=== PATIENT | female | born 1955 | race Caucasian/White ===

== ENCOUNTER → 2017-03-03 | Outpatient (CLI) | payer MEDICARE ==
[~2017-03-03] MED LIST: ASPI325T4 PO; ATOR10TA9 PO; ATOR40TA PO; BUPR75TA6 PO; CLOP75TA22 PO; FURO-93 PO; LISI-167 PO; METH750T87 PO; METO-93 PO; METO25TA91 PO; NITR0.4T8 SL; POTA10TA11 PO; TRAM50TA2 PO
== END | disposition home or self-care (01) ==
LOC: CFH 10:40
PROVIDERS: ATTEND Internal Medicine Cardiovascular Disease
DX: Z01.419 Encounter for gynecological examination (general) (routine) without abnormal findings (principal); E78.00 Pure hypercholesterolemia, unspecified; I10 Essential (primary) hypertension; I25.10 Atherosclerotic heart disease of native coronary artery without angina pectoris; I89.0 Lymphedema, not elsewhere classified; R19.7 Diarrhea, unspecified
CPT/HCPCS: 36415; 80061

== ENCOUNTER → 2018-01-16 | Outpatient (CLI) | payer MEDICARE ==
[~2018-01-16] MED LIST changes: +ASPI325T17 PO; -ASPI325T4 PO; -CLOP75TA22 PO; +CLOP75TA52 PO; +NITR0.4T28 SL; -NITR0.4T8 SL
[2018-01-16 13:01] LABS: ALBUMIN 4.2 g/dL (3.4-5.0); ANION GAP 4 mmol/L (5-15); CALCIUM 9.2 mg/dL (8.5-10.1); CHLORIDE 107 mmol/L (98-107)
[2018-01-16 13:04] LABS: ALANINE AMINOTRANSFERASE 75 U/L (12-78); ALKALINE PHOSPHATASE 99 U/L (45-117); BILIRUBIN,TOTAL 0.7 mg/dL (0.2-1.0); CHOL/HDL RATIO 6.8; CHOLESTEROL, TOTAL 238 mg/dL (140-239); CREATININE 0.84 mg/dL (0.55-1.02); HDL CHOL % 15 % (28-40); HDL CHOLESTEROL (DIRECT) 35 mg/dL (40-60); LDL CHOLESTEROL,CALCULATED 140 mg/dL (54-169); TOTAL PROTEIN 7.7 g/dL (6.4-8.2); TRIGLYCERIDES 314 mg/dL (50-200); VLDL CHOLESTEROL 63 mg/dL (0-25)
== END | disposition home or self-care (01) ==
LOC: CFH 10:25
PROVIDERS: ATTEND Internal Medicine Cardiovascular Disease
DX: I10 Essential (primary) hypertension (principal); E78.00 Pure hypercholesterolemia, unspecified
CPT/HCPCS: 36415; 80053; 80061

== ENCOUNTER → 2018-02-09 | Outpatient (CLI) | payer MEDICARE ==
[2018-02-09 12:39] LABS: CHLORIDE 107 mmol/L (98-107)
[2018-02-09 12:48] LABS: ANION GAP 7 mmol/L (5-15); CALCIUM 8.7 mg/dL (8.5-10.1); CREATININE 0.89 mg/dL (0.55-1.02)
== END ==
LOC: CFH 09:54
PROVIDERS: ATTEND Anesthesiology
DX: Z01.818 Encounter for other preprocedural examination (principal)
CPT/HCPCS: 36415; 80048

== ENCOUNTER → 2018-06-29 | Outpatient (CLI) | payer MEDICARE ==
[2018-06-29 12:46] LABS: CHLORIDE 106 mmol/L (98-107)
[2018-06-29 13:13] LABS: ALANINE AMINOTRANSFERASE 69 U/L (12-78); ALBUMIN 4.1 g/dL (3.4-5.0); ALKALINE PHOSPHATASE 105 U/L (45-117); ANION GAP 7 mmol/L (5-15); BILIRUBIN,TOTAL 0.7 mg/dL (0.2-1.0); CALCIUM 8.7 mg/dL (8.5-10.1); CHOL/HDL RATIO 6.8; CHOLESTEROL, TOTAL 219 mg/dL (140-239); CREATININE 0.83 mg/dL (0.55-1.02); HDL CHOL % 15 % (28-40); HDL CHOLESTEROL (DIRECT) 32 mg/dL (40-60); T4 (THYROXINE) 8.5 mcg/dL (4.8-13.9); TOTAL PROTEIN 7.6 g/dL (6.4-8.2); TRIGLYCERIDES 401 mg/dL (50-200)
== END | disposition home or self-care (01) ==
LOC: CFH 10:43
PROVIDERS: ATTEND Nurse Practitioner Family
DX: I10 Essential (primary) hypertension (principal); E78.00 Pure hypercholesterolemia, unspecified; R00.2 Palpitations
CPT/HCPCS: 36415; 80053; 80061; 84436; 84443; 84481

== ENCOUNTER → 2018-08-19 | Outpatient (CLI) | payer MEDICARE ==
[2018-08-19 12:53] LABS: TROPONIN I < 0.015 ng/mL (0.000-0.045)
== END | disposition home or self-care (01) ==
LOC: CFH 11:27
PROVIDERS: ATTEND Internal Medicine Cardiovascular Disease
DX: I25.10 Atherosclerotic heart disease of native coronary artery without angina pectoris (principal)
CPT/HCPCS: 36415; 84484

== ENCOUNTER 2018-09-10 12:07 | Observation (INO) | payer MEDICARE ==
[~2018-09-10] VITALS: Ht 162.6 cm; Wt 93.4 kg
[2018-09-10 13:42] LABS: BASOPHILS # (AUTO) 0.05 x10^3/uL (0-0.1); BASOPHILS % (AUTO) 1 % (0-1); EOSINOPHILS # (AUTO) 0.38 x10^3/uL (0-0.4); EOSINOPHILS % (AUTO) 4 % (1-7); LYMPHOCYTES # (AUTO) 2.83 x10^3/uL (1-3.4); LYMPHOCYTES % (AUTO) 31 % (22-44); MD NO; MEAN CORPUSCULAR HEMOGLOBIN 29.8 pg (27.0-34.8); MEAN CORPUSCULAR HGB CONC 33.9 g/dL (32.4-35.8); MEAN CORPUSCULAR VOLUME 87.9 fL (80-100); MEAN PLATELET VOLUME 7.3 fL (7.4-10.4); MONOCYTES # (AUTO) 0.56 x10^3/uL (0.2-0.8); MONOCYTES % (AUTO) 6 % (2-9); NEUTROPHILS # (AUTO) 5.24 x10^3/uL (1.8-6.8); NEUTROPHILS % (AUTO) 58 % (42-75); PLATELET COUNT 379 x10^3/uL (130-400); RED BLOOD COUNT 5.34 x10^6/uL (3.82-5.3); RED CELL DISTRIBUTION WIDTH 13.1 % (9.6-15.2)
[2018-09-10 13:55] LABS: ALANINE AMINOTRANSFERASE 65 U/L (12-78); ALBUMIN 4.5 g/dL (3.4-5.0); ANION GAP 7 mmol/L (5-15); CHLORIDE 108 mmol/L (98-107); CREATININE 0.87 mg/dL (0.55-1.02)
[2018-09-10 13:57] LABS: ALKALINE PHOSPHATASE 107 U/L (45-117); BILIRUBIN,TOTAL 0.5 mg/dL (0.2-1.0)
[2018-09-10 14:37] LABS: CULTURE INDICATED? YES; MICROSCOPIC INDICATED
[2018-09-10] MEDS ORDERED: ONDANSETRON 2MG/ML, 2ML ONE (14:40)
[2018-09-10] MEDS ORDERED: MORPHINE SULFATE 4 MG/ML, 1ML ONE ×2 (14:41→15:59)
[2018-09-10] MEDS: MORPHINE SULFATE 4 MG/ML, 1ML IVPush PRN ×2 (14:56→16:04)
[2018-09-10] MEDS ORDERED: SODIUM CHLORIDE FLUSH 10ML SYR IVF ONE (15:00)
[2018-09-10] MEDS ORDERED: ONDANSETRON 2MG/ML, 2ML IVPush ONE (15:00)
[2018-09-10 15:03] LABS: TROPONIN I < 0.015 ng/mL (0.000-0.045)
[2018-09-10] MEDS ORDERED: CYCL5TAB PO (15:05)
[2018-09-10] MEDS ORDERED: OMNIPAQUE 350 MG/ML, 100ML BOTTLE ONE ×2 (15:55→18:04)
[2018-09-10] MEDS ORDERED: DOCUSATE 100 MG CAPSULE PO PRN (17:00)
[2018-09-10] MEDS ORDERED: ENALAPRILAT 1.25 MG/ML, 2ML IVPush PRN (17:00)
[2018-09-10] MEDS ORDERED: ONDANSETRON 2MG/ML, 2ML IVPush PRN (17:00)
[2018-09-10] MEDS ORDERED: ONDANSETRON ODT 4 MG PO PRN (17:00)
[2018-09-10] MEDS ORDERED: NITROGLYCERIN 0.4 MG BOTTLE (25 TABS) SL PRN ×2 (17:00)
[2018-09-10] MEDS ORDERED: GABAPENTIN 300 MG CAPSULE PO PRN (17:00)
[2018-09-10] MEDS ORDERED: NITROGLYCERIN 0.4 MG/SPRAY SL PRN (17:00)
[2018-09-10] MEDS ORDERED: MAALOX/HYOSCYAMINE/LIDOCAINE 45 ML BTL PO PRN (17:00)
[2018-09-10] MEDS ORDERED: MORPHINE SULFATE 4 MG/ML, 1ML IVPush PRN (17:00)
[2018-09-10 17:23] LABS: THYROID STIMULATING HORMONE 1.7 mIU/L (0.358-3.740)
[2018-09-10 18:27] VITALS: BP 161/93
[2018-09-10 19:55] LABS: TROPONIN I < 0.015 ng/mL (0.000-0.045)
[2018-09-10 19:58] VITALS: BP 150/87
[2018-09-10] MEDS: METHOCARBAMOL 500 MG TABLET PO SCH (20:52)
[2018-09-10] MEDS: ENOXAPARIN 40 MG/0.4 ML SQ SCH (20:52)
[2018-09-10] MEDS: ACETAMINOPHEN 325 MG TABLET PO PRN (20:52)
[2018-09-10] MEDS: FAMOTIDINE 20 MG TABLET PO SCH (20:52)
[2018-09-11 01:40] VITALS: BP 93/53
[2018-09-11 01:44] LABS: TROPONIN I < 0.015 ng/mL (0.000-0.045)
[2018-09-11] MEDS: METHOCARBAMOL 500 MG TABLET PO SCH ×3 (05:00→17:18)
[2018-09-11 05:46] LABS: BASOPHILS # (AUTO) 0.07 x10^3/uL (0-0.1); BASOPHILS % (AUTO) 1 % (0-1); EOSINOPHILS # (AUTO) 0.39 x10^3/uL (0-0.4); EOSINOPHILS % (AUTO) 5 % (1-7); LYMPHOCYTES # (AUTO) 2.72 x10^3/uL (1-3.4); LYMPHOCYTES % (AUTO) 38 % (22-44); MD NO; MEAN CORPUSCULAR HEMOGLOBIN 30.9 pg (27.0-34.8); MEAN CORPUSCULAR HGB CONC 35.1 g/dL (32.4-35.8); MEAN PLATELET VOLUME 7.4 fL (7.4-10.4); MONOCYTES # (AUTO) 0.56 x10^3/uL (0.2-0.8); MONOCYTES % (AUTO) 8 % (2-9); NEUTROPHILS # (AUTO) 3.38 x10^3/uL (1.8-6.8); NEUTROPHILS % (AUTO) 48 % (42-75); PLATELET COUNT 332 x10^3/uL (130-400); RED BLOOD COUNT 4.69 x10^6/uL (3.82-5.3); RED CELL DISTRIBUTION WIDTH 13.1 % (9.6-15.2)
[2018-09-11 05:55] LABS: CALCIUM 9.2 mg/dL (8.5-10.1); CHLORIDE 104 mmol/L (98-107)
[2018-09-11 06:01] LABS: ALANINE AMINOTRANSFERASE 56 U/L (12-78); ALBUMIN 3.9 g/dL (3.4-5.0); ALKALINE PHOSPHATASE 95 U/L (45-117); ANION GAP 9 mmol/L (5-15); BILIRUBIN,TOTAL 0.9 mg/dL (0.2-1.0); CHOL/HDL RATIO 6.9; CHOLESTEROL, TOTAL 214 mg/dL (140-239); CREATININE 1.02 mg/dL (0.55-1.02); HDL CHOL % 14 % (28-40); HDL CHOLESTEROL (DIRECT) 31 mg/dL (40-60); LDL CHOLESTEROL,CALCULATED 111 mg/dL (54-169); LDL/HDL RATIO 3.6 (0.5-3.0); TRIGLYCERIDES 362 mg/dL (50-200); VLDL CHOLESTEROL 72 mg/dL (0-25)
[2018-09-11 07:16] VITALS: BP 118/72
[2018-09-11] MEDS: ASPIRIN 325 MG TABLET PO SCH (09:03)
[2018-09-11] MEDS: FAMOTIDINE 20 MG TABLET PO SCH ×2 (09:03→21:18)
[2018-09-11] MEDS: LISINOPRIL 10 MG TABLET PO SCH (09:03)
[2018-09-11] MEDS: METOPROLOL SUCCINATE 50 MG TAB.ER.24H PO SCH (09:04)
[2018-09-11] MEDS ORDERED: LIDODERM 5% PATCH TD PRN (10:00)
[2018-09-11] MEDS ORDERED: SODIUM CHLORIDE 0.9% 1,000 ML IV ONE (10:24)
[2018-09-11 11:37] VITALS: BP 131/76
[2018-09-11] MEDS ORDERED: FENTANYL PF 100 MCG/2ML ONE (13:57)
[2018-09-11] MEDS ORDERED: MIDAZOLAM 1 MG/ML, 5ML ONE (13:57)
[2018-09-11] MEDS ORDERED: HEPARIN 1,000 UNITS/ML, 10ML ONE (13:58)
[2018-09-11] MEDS ORDERED: VERAPAMIL 2.5 MG/ML, 2ML ONE (13:58)
[2018-09-11] MEDS ORDERED: LIDOCAINE 2%, 20ML ONE (13:58)
[2018-09-11] MEDS ORDERED: TICAGRELOR 90 MG TABLET ONE (13:58)
[2018-09-11] MEDS ORDERED: BIVALIRUDIN 250 MG ONE ×2 (13:58→15:16)
[2018-09-11] MEDS ORDERED: SODIUM CHLORIDE 0.9% 1,000 ML IV SCH (15:20)
[2018-09-11] MEDS: BIVALIRUDIN 250 MG in DEXTROSE 5% 100 ML IV SCH ×2 (15:32→17:54)
[2018-09-11 15:42] VITALS: BP 147/84
[2018-09-11] MEDS: ACETAMINOPHEN 325 MG TABLET PO PRN (18:25)
[2018-09-11 20:44] VITALS: BP 161/82
[2018-09-11] MEDS: ENOXAPARIN 40 MG/0.4 ML SQ SCH (21:18)
[2018-09-11] MEDS: TICAGRELOR 90 MG TABLET PO SCH (21:18)
[2018-09-12 01:25] VITALS: BP 138/79
[2018-09-12] MEDS: ACETAMINOPHEN 325 MG TABLET PO PRN ×2 (02:21→09:17)
[2018-09-12 04:52] LABS: ANION GAP 6 mmol/L (5-15); CALCIUM 8.8 mg/dL (8.5-10.1); CHLORIDE 105 mmol/L (98-107); CREATININE 0.94 mg/dL (0.55-1.02)
[2018-09-12] MEDS: METHOCARBAMOL 500 MG TABLET PO SCH (05:56)
[2018-09-12 07:55] VITALS: BP 165/95
[2018-09-12] MEDS: ASPIRIN 325 MG TABLET PO SCH (08:52)
[2018-09-12] MEDS: TICAGRELOR 90 MG TABLET PO SCH (08:55)
[2018-09-12] MEDS: FAMOTIDINE 20 MG TABLET PO SCH (08:55)
[2018-09-12] MEDS: LISINOPRIL 10 MG TABLET PO SCH (08:55)
[2018-09-12] MEDS: METOPROLOL SUCCINATE 50 MG TAB.ER.24H PO SCH (08:56)
[2018-09-12] MEDS ORDERED: ASPIRIN 81 MG TABLET EC PO SCH (09:00)
[2018-09-12 10:09] VITALS: BP 160/77
[2018-09-12] MEDS ORDERED: ASPI325T17 PO (10:11)
[2018-09-12] MEDS ORDERED: TICA90TA PO (10:11)
== END 2018-09-12 12:07 | disposition home or self-care (01) ==
LOC: ED 13:43 → EDIP 16:55 → 5SO 18:16
PROVIDERS: ADMIT Hospitalist; ATTEND Hospitalist
DX: I25.110 Atherosclerotic heart disease of native coronary artery with unstable angina pectoris (principal); E66.9 Obesity, unspecified; E78.1 Pure hyperglyceridemia; E78.5 Hyperlipidemia, unspecified; I10 Essential (primary) hypertension; F32.9 Major depressive disorder, single episode, unspecified; K76.0 Fatty (change of) liver, not elsewhere classified; Z79.82 Long term (current) use of aspirin; Z82.0 Family history of epilepsy and other diseases of the nervous system; Z82.3 Family history of stroke; Z82.49 Family history of ischemic heart disease and other diseases of the circulatory system; Z86.19 Personal history of other infectious and parasitic diseases; Z87.891 Personal history of nicotine dependence; Z90.710 Acquired absence of both cervix and uterus
CPT/HCPCS: 36415; 71275; 74177; 76700; 80048; 80053; 80061; 81001; 82607; 83690; 83735; 84443; 84484; 85025; 87086; 93005; 93458; 96365; 96366; 96372; 96375; 96376; 99156; 99157; 99284; C1725; C1760; C1769; C1874; C1887; C1894; C9604; G0378; J0583; J1644; J1650; J2250; J2405; J3010; J7030; Q9967; J3490

== ENCOUNTER → 2018-10-21 | Outpatient (CLI) | payer MEDICARE ==
[~2018-10-21] MED LIST changes: +CYCL5TAB PO; +TICA90TA PO
[2018-10-22 13:34] LABS: CRYPTOSPORIDIUM ANTIGEN Negative (Negative)
== END | disposition home or self-care (01) ==
LOC: CFH 12:15
PROVIDERS: ATTEND Internal Medicine Gastroenterology
DX: K21.9 Gastro-esophageal reflux disease without esophagitis (principal); E73.9 Lactose intolerance, unspecified; I10 Essential (primary) hypertension; E89.41 Symptomatic postprocedural ovarian failure; K63.89 Other specified diseases of intestine; R10.11 Right upper quadrant pain; G58.8 Other specified mononeuropathies; F45.8 Other somatoform disorders; Z95.5 Presence of coronary angioplasty implant and graft; R19.4 Change in bowel habit; Z79.01 Long term (current) use of anticoagulants; Z68.34 Body mass index [BMI] 34.0-34.9, adult; Z86.010 Personal history of colon polyps; Z87.891 Personal history of nicotine dependence
CPT/HCPCS: 36415; 82150; 82784; 83516; 86803; 87015; 87177; 87206; 87209; 87328; 87329

== ENCOUNTER → 2018-12-22 | Outpatient (CLI) | payer MEDICARE ==
[2018-12-22 16:54] LABS: CHLORIDE 108 mmol/L (98-107)
[2018-12-22 17:01] LABS: ALANINE AMINOTRANSFERASE 62 U/L (12-78); ALBUMIN 4.3 g/dL (3.4-5.0); ALKALINE PHOSPHATASE 108 U/L (45-117); ANION GAP 6 mmol/L (5-15); BILIRUBIN,TOTAL 0.9 mg/dL (0.2-1.0); CALCIUM 9.1 mg/dL (8.5-10.1); CHOL/HDL RATIO 6.5; CHOLESTEROL, TOTAL 234 mg/dL (140-239); HDL CHOL % 15 % (28-40); HDL CHOLESTEROL (DIRECT) 36 mg/dL (40-60); LDL CHOLESTEROL,CALCULATED 131 mg/dL (54-169); LDL/HDL RATIO 3.6 (0.5-3.0); TOTAL PROTEIN 7.5 g/dL (6.4-8.2); TRIGLYCERIDES 334 mg/dL (50-200); VLDL CHOLESTEROL 67 mg/dL (0-25)
== END | disposition home or self-care (01) ==
LOC: CFH 11:00
PROVIDERS: ATTEND Internal Medicine Cardiovascular Disease
DX: Z01.810 Encounter for preprocedural cardiovascular examination (principal); R00.2 Palpitations; R19.7 Diarrhea, unspecified; I10 Essential (primary) hypertension; I25.10 Atherosclerotic heart disease of native coronary artery without angina pectoris; E78.00 Pure hypercholesterolemia, unspecified
CPT/HCPCS: 36415; 80053; 80061

== ENCOUNTER 2019-05-14 10:54 | Outpatient (CLI) | payer MEDICARE | END 2019-05-14 23:59 | disposition home or self-care (01) | LOC: CFH 10:54 | PROVIDERS: ATTEND Internal Medicine Cardiovascular Disease | DX: Z01.810 Encounter for preprocedural cardiovascular examination (principal); E78.00 Pure hypercholesterolemia, unspecified; I10 Essential (primary) hypertension; I25.10 Atherosclerotic heart disease of native coronary artery without angina pectoris; R00.2 Palpitations; R19.7 Diarrhea, unspecified | CPT/HCPCS: 36415; 80053; 80061; 84436; 84443; 84481; 85025 ==

== ENCOUNTER → 2019-12-07 | Outpatient (CLI) | payer MEDICARE ==
[~2019-12-07] MED LIST changes: +ASPI-515 PO; +CLOPIDOGREL PO
[2019-12-07 13:10] LABS: BASOPHILS # (AUTO) 0.03 x10^3/uL (0-0.1); BASOPHILS % (AUTO) 1 % (0-1); EOSINOPHILS # (AUTO) 0.21 x10^3/uL (0-0.4); EOSINOPHILS % (AUTO) 3 % (1-7); LYMPHOCYTES # (AUTO) 2.35 x10^3/uL (1-3.4); LYMPHOCYTES % (AUTO) 35 % (22-44); MD NO; MEAN CORPUSCULAR HEMOGLOBIN 30.2 pg (27.0-34.8); MEAN CORPUSCULAR HGB CONC 33.7 g/dL (32.4-35.8); MEAN CORPUSCULAR VOLUME 89.7 fL (80-100); MEAN PLATELET VOLUME 7.4 fL (7.4-10.4); MONOCYTES # (AUTO) 0.42 x10^3/uL (0.2-0.8); MONOCYTES % (AUTO) 6 % (2-9); NEUTROPHILS # (AUTO) 3.72 x10^3/uL (1.8-6.8); NEUTROPHILS % (AUTO) 55 % (42-75); PLATELET COUNT 345 x10^3/uL (130-400); RED BLOOD COUNT 5.13 x10^6/uL (3.82-5.3); RED CELL DISTRIBUTION WIDTH 13.2 % (9.6-15.2)
[2019-12-07 13:53] LABS: ALBUMIN 4.4 g/dL (3.4-5.0); ANION GAP 6 mmol/L (5-15); CALCIUM 9.2 mg/dL (8.5-10.1); CHLORIDE 105 mmol/L (98-107)
[2019-12-07 13:57] LABS: ALANINE AMINOTRANSFERASE 55 U/L (12-78); ALKALINE PHOSPHATASE 104 U/L (45-117); BILIRUBIN,TOTAL 0.8 mg/dL (0.2-1.0); CHOL/HDL RATIO 7.3; CHOLESTEROL, TOTAL 232 mg/dL (140-239); CREATININE 0.92 mg/dL (0.55-1.02); HDL CHOL % 14 % (28-40); HDL CHOLESTEROL (DIRECT) 32 mg/dL (40-60); LDL CHOLESTEROL,CALCULATED 133 mg/dL (54-169); LDL/HDL RATIO 4.2 (0.5-3.0); TRIGLYCERIDES 337 mg/dL (50-200); VLDL CHOLESTEROL 67 mg/dL (0-25)
== END | disposition home or self-care (01) ==
LOC: CFH 11:06
PROVIDERS: ATTEND Internal Medicine Cardiovascular Disease
DX: I25.10 Atherosclerotic heart disease of native coronary artery without angina pectoris (principal); I10 Essential (primary) hypertension; E78.00 Pure hypercholesterolemia, unspecified; R00.2 Palpitations; R06.00 Dyspnea, unspecified
CPT/HCPCS: 36415; 80053; 80061; 85025

== ENCOUNTER 2020-04-07 08:27 | Day surgery (SDC) | payer MEDICARE ==
[~2020-04-07] VITALS: Ht 162.6 cm; Wt 90.9 kg
[2020-04-07] MEDS ORDERED: SODIUM CHLORIDE 0.9% 1,000 ML IV SCH (08:42)
[2020-04-07 08:46] VITALS: BP 155/94
[2020-04-07] MEDS ORDERED: CLOP75TA52 PO (09:03)
[2020-04-07] MEDS ORDERED: ASPI81TA45 PO (09:03)
[2020-04-07] MEDS ORDERED: OMEG1CAP23 PO (09:12)
[2020-04-07] MEDS ORDERED: NITR0.4T28 SL (09:12)
[2020-04-07] MEDS ORDERED: POTA10TA31 PO (09:12)
[2020-04-07] MEDS ORDERED: CHOL10003 PO (09:12)
[2020-04-07] MEDS ORDERED: MULT-658 PO (09:12)
[2020-04-07] MEDS ORDERED: METO50TA82 PO (09:12)
[2020-04-07] MEDS ORDERED: UBID100C24 PO (09:12)
[2020-04-07] MEDS ORDERED: KRIL1CAP31 PO (09:12)
[2020-04-07] MEDS ORDERED: PLAN450T PO (09:12)
[2020-04-07] MEDS ORDERED: LACT1CAP35 PO (09:12)
[2020-04-07] MEDS ORDERED: CYCL5TAB PO (09:12)
[2020-04-07] MEDS ORDERED: RED YEAST PO (09:12)
[2020-04-07] MEDS ORDERED: FURO-93 PO (09:12)
[2020-04-07] MEDS ORDERED: CA C1TAB62 PO (09:12)
[2020-04-07 09:23] LABS: BASOPHILS # (AUTO) 0.04 x10^3/uL (0-0.1); BASOPHILS % (AUTO) 1 % (0-1); EOSINOPHILS # (AUTO) 0.28 x10^3/uL (0-0.4); EOSINOPHILS % (AUTO) 4 % (1-7); LYMPHOCYTES # (AUTO) 2.41 x10^3/uL (1-3.4); LYMPHOCYTES % (AUTO) 37 % (22-44); MD NO; MEAN CORPUSCULAR HEMOGLOBIN 29.5 pg (27.0-34.8); MEAN CORPUSCULAR HGB CONC 32.8 g/dL (32.4-35.8); MEAN PLATELET VOLUME 7.1 fL (7.4-10.4); MONOCYTES # (AUTO) 0.47 x10^3/uL (0.2-0.8); MONOCYTES % (AUTO) 7 % (2-9); NEUTROPHILS # (AUTO) 3.28 x10^3/uL (1.8-6.8); NEUTROPHILS % (AUTO) 51 % (42-75); PLATELET COUNT 332 x10^3/uL (130-400); RED BLOOD COUNT 4.95 x10^6/uL (3.82-5.3); RED CELL DISTRIBUTION WIDTH 13.7 % (9.6-15.2)
[2020-04-07 09:35] LABS: ANION GAP 4 mmol/L (5-15); CALCIUM 9.3 mg/dL (8.5-10.1); CHLORIDE 110 mmol/L (98-107)
[2020-04-07 09:36] LABS: CREATININE 0.91 mg/dL (0.55-1.02)
[2020-04-07] MEDS ORDERED: VERAPAMIL 2.5 MG/ML, 2ML ONE (10:08)
[2020-04-07] MEDS ORDERED: MIDAZOLAM 1 MG/ML, 5ML ONE (10:08)
[2020-04-07] MEDS ORDERED: FENTANYL PF 100 MCG/2ML ONE (10:08)
[2020-04-07] MEDS ORDERED: TICAGRELOR 90 MG TABLET ONE (10:08)
[2020-04-07] MEDS ORDERED: LIDOCAINE-MPF 1%, 5ML ONE (10:08)
[2020-04-07] MEDS ORDERED: BIVALIRUDIN 250 MG ONE (10:08)
[2020-04-07] MEDS ORDERED: HEPARIN 1,000 UNITS/ML, 10ML ONE (10:09)
[2020-04-07] MEDS ORDERED: DIPHENHYDRAMINE 50 MG/ML, 1ML ONE (11:02)
== END 2020-04-07 15:03 | disposition home or self-care (01) ==
LOC: CACL 08:27
PROVIDERS: ATTEND Internal Medicine Cardiovascular Disease
DX: I25.110 Atherosclerotic heart disease of native coronary artery with unstable angina pectoris (principal); I25.700 Atherosclerosis of coronary artery bypass graft(s), unspecified, with unstable angina pectoris; I25.83 Coronary atherosclerosis due to lipid rich plaque; I25.82 Chronic total occlusion of coronary artery; I10 Essential (primary) hypertension; I25.2 Old myocardial infarction; E78.00 Pure hypercholesterolemia, unspecified; Z79.82 Long term (current) use of aspirin; Z79.02 Long term (current) use of antithrombotics/antiplatelets; Z79.899 Other long term (current) drug therapy; Z87.891 Personal history of nicotine dependence; Z88.2 Allergy status to sulfonamides; Z91.030 Bee allergy status; Z91.040 Latex allergy status; Z95.5 Presence of coronary angioplasty implant and graft
CPT/HCPCS: 36415; 80048; 85025; 93459; 99156; 99157; C1760; C1769; C1894; J1200; J2250; J3010; Q9967; J0583; J1644

== ENCOUNTER 2020-08-28 15:12 | Emergency (ER) | payer MEDICARE ==
[~2020-08-28] VITALS: Ht 162.6 cm; Wt 95.8 kg
[~2020-08-28 15:12] MED LIST changes: +ASPI81TA45 PO; +CA C1TAB62 PO; +CHOL10003 PO; +KRIL1CAP31 PO; +LACT1CAP35 PO; +METO50TA82 PO; +MULT-658 PO; +OMEG1CAP23 PO; +PLAN450T PO; +POTA10TA31 PO; +RED YEAST PO; +UBID100C24 PO
[2020-08-28 16:50] LABS: ALBUMIN 4.4 g/dL (3.4-5.0); ANION GAP 8 mmol/L (5-15); CALCIUM 9.7 mg/dL (8.5-10.1); CHLORIDE 104 mmol/L (98-107)
--- NOTE | 2020-08-28 16:51 | NUR ---
Pt here for c/o COREAS for 5 days. States BP has been high, takes Lisinopril daily. Pt has lengthy cardiac HX. Denies SOB, CP, NV.
[2020-08-28 16:53] LABS: BASOPHILS % (AUTO) 1 % (0-1); EOSINOPHILS % (AUTO) 2 % (1-7); LYMPHOCYTES % (AUTO) 30 % (22-44); MEAN CORPUSCULAR HEMOGLOBIN 30.3 pg (27.0-34.8); MEAN CORPUSCULAR HGB CONC 34.6 g/dL (32.4-35.8); MEAN PLATELET VOLUME 7.1 fL (7.4-10.4); MONOCYTES % (AUTO) 7 % (2-9); NEUTROPHILS % (AUTO) 60 % (42-75); PLATELET COUNT 363 x10^3/uL (130-400)
[2020-08-28 16:56] LABS: ALANINE AMINOTRANSFERASE 86 U/L (12-78); ALKALINE PHOSPHATASE 109 U/L (45-117); BILIRUBIN,TOTAL 0.6 mg/dL (0.2-1.0); CREATININE 0.89 mg/dL (0.55-1.02); TOTAL PROTEIN 8.1 g/dL (6.4-8.2); TROPONIN I < 0.015 ng/mL (0.000-0.045)
[2020-08-28 16:59] LABS: MD NO
[2020-08-28] MEDS ORDERED: HYDROcodone/APAP 5/325 TABLET ONE (17:23)
[2020-08-28] MEDS ORDERED: HYDROcodone/APAP 5/325 TABLET PO ONE (17:30)
--- NOTE | 2020-08-28 17:56 | NUR ---
Medicated for HTN and COREAS. Waiting for head CT. VS updated.
[2020-08-28 17:57] VITALS: BP 163/82
--- NOTE | 2020-08-28 19:00 | NUR ---
BEDSIDE REPORT RECEIVED FROM VANESSA PIZANO
--- NOTE | 2020-08-28 19:01 | NUR ---
Report to HARINDER Bourne
--- NOTE | 2020-08-28 19:44 | NUR ---
Patient given discharge instructions and they have confirmed that they understand the instructions. Patient ambulatory with steady gait.
== END 2020-08-28 19:45 | disposition home or self-care (01) ==
LOC: ED 16:54
DX: R51.9 Headache, unspecified (principal); I10 Essential (primary) hypertension; R07.9 Chest pain, unspecified; R94.31 Abnormal electrocardiogram [ECG] [EKG]
CPT/HCPCS: 36415; 70450; 71045; 80053; 84484; 85025; 93005; 99285

== ENCOUNTER 2020-10-22 09:22 | Emergency (ER) | payer MEDICARE ==
[~2020-10-22] VITALS: Ht 162.6 cm; Wt 96.0 kg
--- NOTE | 2020-10-22 09:51 | NUR ---
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 [facility] WALKED TO LAB.
[2020-10-22 10:00] LABS: MICROSCOPIC AUTO
[2020-10-22] MEDS ORDERED: MORPHINE SULFATE 4 MG/ML, 1ML ONE (10:26)
[2020-10-22] MEDS ORDERED: ONDANSETRON 2MG/ML, 2ML ONE (10:26)
[2020-10-22] MEDS ORDERED: KETOROLAC 30 MG/1 ML ONE (10:26)
[2020-10-22] MEDS ORDERED: KETOROLAC 30 MG/1 ML IVPush ONE (10:30)
[2020-10-22] MEDS ORDERED: MORPHINE SULFATE 4 MG/ML, 1ML IVPush PRN (10:30)
[2020-10-22] MEDS ORDERED: SODIUM CHLORIDE FLUSH 10ML SYR IVF ONE (10:30)
[2020-10-22] MEDS ORDERED: ONDANSETRON 2MG/ML, 2ML IVPush ONE (10:30)
--- NOTE | 2020-10-22 10:35 | NUR ---
PT MEDICATED PER MAR FOR PAIN AND NAUSEA. PIV ESTABLISHED AND LABS DRAWN AND TUBED TO LAB. PT TAKEN TO CT VIA GURNEY AT THIS TIME.
--- NOTE | 2020-10-22 10:42 | NUR ---
PT BACK TO ROOM FROM CT [facility]IA [facility] AT THIS TIME.
[2020-10-22 10:51] LABS: BASOPHILS % (AUTO) 1 % (0-1); EOSINOPHILS % (AUTO) 2 % (1-7); LYMPHOCYTES % (AUTO) 19 % (22-44); MEAN CORPUSCULAR HEMOGLOBIN 29.8 pg (27.0-34.8); MEAN PLATELET VOLUME 7.4 fL (7.4-10.4); MONOCYTES % (AUTO) 7 % (2-9); NEUTROPHILS % (AUTO) 72 % (42-75); PLATELET COUNT 330 x10^3/uL (130-400); RED BLOOD COUNT 4.96 x10^6/uL (3.82-5.3); RED CELL DISTRIBUTION WIDTH 12.7 % (9.6-15.2)
[2020-10-22 11:01] LABS: ALBUMIN 4.1 g/dL (3.4-5.0); ANION GAP 6 mmol/L (5-15); CALCIUM 9.1 mg/dL (8.5-10.1); CHLORIDE 106 mmol/L (98-107)
[2020-10-22 11:04] LABS: MD NO
--- NOTE | 2020-10-22 12:16 | NUR ---
PT D/C WITH D/C SUMMARY. PIV D/C WITH TIP INTACT. PT HAS SPOUSE IN LOBBY AT THIS TIME TO GIVE PT A RIDE HOME AND DENIES ANY OTHER NEEDS PERTAINING TO THIS VISIT. PT AMBULATES TO REGISTRATION DESK WITH A SLOW AND STEADY GAIT FOR SAFE D/C HOME.
[2020-10-22 12:17] VITALS: BP 118/84
== END 2020-10-22 12:18 ==
LOC: ED 10:57
DX: R10.32 Left lower quadrant pain (principal); R39.15 Urgency of urination; R30.0 Dysuria; I10 Essential (primary) hypertension; E78.5 Hyperlipidemia, unspecified; Z98.61 Coronary angioplasty status; Z87.891 Personal history of nicotine dependence
CPT/HCPCS: 36415; 74176; 80048; 81001; 82040; 85025; 87086; 96374; 96375; 99284; J1885; J2270; J2405

== ENCOUNTER → 2021-06-25 | Outpatient (CLI) | payer MEDICARE ==
[~2021-06-25] MED LIST changes: -ASPI-515 PO; +ASPI-963 PO; +CLOP75TA PO; +ISOS10TA2 PO; +METO50TA6 PO; -PLAN450T PO; +PLAN450T2 PO; +RANO500T2 PO; +VALS1TAB30 PO; +VIT B COMPLEX
[2021-06-25 12:02] LABS: BASOPHILS % (AUTO) 1 % (0-1); EOSINOPHILS % (AUTO) 3 % (1-7); LYMPHOCYTES % (AUTO) 35 % (22-44); MEAN CORPUSCULAR HEMOGLOBIN 30.2 pg (27.0-34.8); MEAN CORPUSCULAR HGB CONC 34.3 g/dL (32.4-35.8); MONOCYTES % (AUTO) 8 % (2-9); NEUTROPHILS % (AUTO) 54 % (42-75); PLATELET COUNT 372 x10^3/uL (130-400); RED BLOOD COUNT 4.87 x10^6/uL (3.82-5.3); RED CELL DISTRIBUTION WIDTH 13.4 % (9.6-15.2)
[2021-06-25 12:05] LABS: ALANINE AMINOTRANSFERASE 55 U/L (12-78); ALBUMIN 4.3 g/dL (3.4-5.0); CALCIUM 9.3 mg/dL (8.5-10.1); CHLORIDE 104 mmol/L (98-107); CHOLESTEROL, TOTAL 248 mg/dL (140-239); CREATININE 1.09 mg/dL (0.55-1.02)
[2021-06-25 12:08] LABS: ALKALINE PHOSPHATASE 92 U/L (45-117); ANION GAP 3 mmol/L (5-15); BILIRUBIN,TOTAL 0.7 mg/dL (0.2-1.0); CHOL/HDL RATIO 6.4; HDL CHOL % 16 % (28-40); HDL CHOLESTEROL (DIRECT) 39 mg/dL (40-60); LDL CHOLESTEROL,CALCULATED 135 mg/dL (54-169); LDL/HDL RATIO 3.5 (0.5-3.0); TOTAL PROTEIN 8.1 g/dL (6.4-8.2); TRIGLYCERIDES 371 mg/dL (50-200); VLDL CHOLESTEROL 74 mg/dL (0-25)
== END | disposition home or self-care (01) ==
LOC: LAB 11:38
PROVIDERS: ATTEND Internal Medicine Cardiovascular Disease
DX: I21.4 Non-ST elevation (NSTEMI) myocardial infarction (principal); E66.9 Obesity, unspecified; E78.00 Pure hypercholesterolemia, unspecified; I10 Essential (primary) hypertension; I25.10 Atherosclerotic heart disease of native coronary artery without angina pectoris; I25.110 Atherosclerotic heart disease of native coronary artery with unstable angina pectoris; I89.0 Lymphedema, not elsewhere classified; J98.11 Atelectasis; K75.81 Nonalcoholic steatohepatitis (NASH); R00.2 Palpitations
CPT/HCPCS: 36415; 80053; 80061; 85025